=== PATIENT | female | born 1955 | race Caucasian/White ===

== ENCOUNTER → 2021-08-18 09:40 | Outpatient (BNVA) | payer MEDICARE, OTHER, SELFPAY | PROVIDERS: Visit Provider Nurse Practitioner Family | DX: R05.9 Cough, unspecified (principal); R53.83 Other fatigue; W57.XXXA Bitten or stung by nonvenomous insect and other nonvenomous arthropods, initial encounter; Z91.89 Other specified personal risk factors, not elsewhere classified | CPT/HCPCS: 87635 ==

== ENCOUNTER → 2021-11-04 10:36 | Outpatient (BNVA) | payer MEDICARE, OTHER, SELFPAY | PROVIDERS: Visit Provider Nurse Practitioner Family | DX: R19.7 Diarrhea, unspecified (principal); Z13.88 Encounter for screening for disorder due to exposure to contaminants; R82.998 Other abnormal findings in urine | CPT/HCPCS: 80053; 81000; 85025 ==

== ENCOUNTER → 2021-11-07 08:49 | Outpatient (BNVA) | payer MEDICARE, OTHER, SELFPAY | PROVIDERS: Referring Provider Family Medicine; Visit Provider Nurse Practitioner Family | DX: R19.7 Diarrhea, unspecified (principal); Z13.88 Encounter for screening for disorder due to exposure to contaminants | CPT/HCPCS: 87506 ==

== ENCOUNTER → 2021-11-09 11:00 | Outpatient (BNVA) | payer MEDICARE, OTHER, SELFPAY | PROVIDERS: Visit Provider Nurse Practitioner Family | DX: R19.7 Diarrhea, unspecified (principal); Z13.88 Encounter for screening for disorder due to exposure to contaminants | CPT/HCPCS: 87177; 87209; 87493 ==

== ENCOUNTER → 2022-08-25 10:50 | Outpatient (BNVA) | payer MEDICARE, OTHER, SELFPAY | PROVIDERS: PCP Family Medicine; Visit Provider Family Medicine | DX: E53.8 Deficiency of other specified B group vitamins (principal); T78.40XA Allergy, unspecified, initial encounter; M81.0 Age-related osteoporosis without current pathological fracture; M19.90 Unspecified osteoarthritis, unspecified site; I10 Essential (primary) hypertension; Z13.6 Encounter for screening for cardiovascular disorders; E55.9 Vitamin D deficiency, unspecified | CPT/HCPCS: 80053; 80061; 82607; 82652; 85025 ==

== ENCOUNTER → 2022-09-13 09:28 | Outpatient (BNVA) | payer MEDICARE, OTHER, SELFPAY | PROVIDERS: PCP Family Medicine; Visit Provider Family Medicine | DX: D58.2 Other hemoglobinopathies (principal); E53.8 Deficiency of other specified B group vitamins; E83.119 Hemochromatosis, unspecified | CPT/HCPCS: 82728; 83540 ==

== ENCOUNTER → 2024-04-10 09:11 | Outpatient (BNVA) | payer MEDICARE, MEDICAID, SELFPAY | PROVIDERS: PCP Family Medicine; Visit Provider Family Medicine | DX: N39.0 Urinary tract infection, site not specified (principal); M19.90 Unspecified osteoarthritis, unspecified site; I10 Essential (primary) hypertension; E53.8 Deficiency of other specified B group vitamins; E03.9 Hypothyroidism, unspecified | CPT/HCPCS: 80053; 80061; 81000; 82607; 84443; 85025 ==

== ENCOUNTER 2024-11-11 08:53 | Outpatient (CLI) | payer MEDICARE, SELFPAY ==
--- NOTE | 2024-11-11 08:59 | CTR_ITS ---
PROCEDURE INFORMATION: Exam: CT Abdomen And Pelvis With Contrast Exam date and time: 11/11/2024 10:27 AM Age: 69 years old Clinical indication: Abdominal pain; Generalized; Prior surgery; Surgery date: 6+ months; Surgery type: Hyst, gb, duodenum x 2; Mucus diarrhea x 1 month with cramping; Additional info: K57.92 - diverticulitis of intestine, part unspecified, w. . . TECHNIQUE: Imaging protocol: Computed tomography of the abdomen and pelvis with contrast. Radiation optimization: All CT scans at this facility use at least one of these dose optimization techniques: automated exposure control; mA and/or kV adjustment per patient size (includes targeted exams where dose is matched to clinical indication); or iterative reconstruction. Contrast material: OMNIPAQUE 350; Contrast volume: 100 ml; Contrast route: INTRAVENOUS (IV); Other contrast: Oral, omnipaque 350, 50; COMPARISON: No relevant prior studies available. RADIATION DOSE METRICS: Total DLP (mGy-cm): 235.9 FINDINGS: Lungs: Mild bilateral lower lobe atelectasis. A few bulla are present in the right lower lobe. Liver: 4 mm hypodensity posteriorly in the right lobe of the liver, too small to characterize. No suspicious liver mass. Gallbladder and biliary ducts: Post cholecystectomy. There is no evidence of biliary ductal dilation. Pancreas: Slight reduced attenuation of the pancreatic parenchyma, likely reflecting fatty infiltration. No evidence for pancreas mass or pancreas ductal dilatation. Spleen: The spleen is normal. Adrenal glands: The adrenal glands are normal. Kidneys and ureters: Bilateral renal cysts, measuring up to 4.8 cm on right. Bilateral renal cortical defects suggesting infarcts. 4 mm calcification in the right renal hilum is likely vascular. No urinary calculi identified. No hydronephrosis. Stomach and bowel: Third portion of the duodenal is collapsed as it extends between the aorta and SMA. No bowel dilatation. Moderate low-attenuation mural thickening involves the distal transverse colon, descending colon, sigmoid colon and proximal rectum. Very slight strand-like density surrounds the thickened portions of the colon, but there are no focal paracolonic inflammatory changes or fluid collections. Appendix: Normal appendix. Intraperitoneal space: Small amount of free fluid is noted in the left posterior pelvis. No free intraperitoneal gas. Vasculature: Marked mural calcification in the abdominal aorta and iliac arteries. No abdominal aortic aneurysm. Moderate to severe external iliac artery stenoses are present bilaterally. A focal calcification at the origin of the right renal artery obscures the lumen, and could reflect severe stenosis. Mild dilatation of the proximal celiac artery. Lymph nodes: No lymph node enlargement. Urinary bladder: Bladder is collapsed, but is otherwise unremarkable.There has been a hysterectomy. Reproductive: No adnexal cysts or masses are identified. Bones/joints: 2.6 cm dense, sclerotic focus in the right iliac wing superior to the right acetabulum. Diffuse, patchy osseous demineralization is present. Soft tissues: Unremarkable. CT/CT abdomen pelvis w con* [id number] IMPRESSION: 1. Diffuse mural thickening involving the left colon consistent with colitis. Infectious processes and inflammatory bowel disease should be considered. 2. Narrowed duodenum as it extends under the SMA. If there are clinical concerns for SMA syndrome, further assessment with upper GI series is recommended. 3. Severe atherosclerotic disease including external iliac artery stenoses and possible right renal artery stenosis. 4. Indeterminate 2.6 cm sclerotic density in the right iliac ring. Although a large bone island could account for this appearance, a single osseous metastasis is considered. The findings should be assessed for acuity with comparison to prior imaging studies. COMMENTS: Consistent with the [employer]'s Incidental Findings Committee white paper (J Am Delio Radiol 2018): Any incidental renal lesion less than 1 cm or classified as too small to characterize, or any incidental cystic renal lesion characterized as simple-appearing, is likely benign. No follow-up imaging is recommended for these lesions per consensus recommendations based on imaging criteria.
[2024-11-11] MEDS: iohexol 350 mg/mL 500 mL Btl (per mL) PO (09:41)
[2024-11-11 10:23] LABS: Blood Urea Nitrogen 13 mg/dL (8-23)
== END 2024-11-11 08:54 | disposition home or self-care (01) ==
LOC: RAD 08:54
PROVIDERS: PCP Family Medicine; Visit Provider Clinical Nurse Specialist Adult Health
DX: K57.92 Diverticulitis of intestine, part unspecified, without perforation or abscess without bleeding (principal); I70.8 Atherosclerosis of other arteries
CPT/HCPCS: 74177; 82565; 84520

== ENCOUNTER → 2025-03-05 14:44 | Outpatient (BNVA) | payer MEDICARE, SELFPAY | PROVIDERS: PCP Family Medicine; Visit Provider Family Medicine | DX: Z00.00 Encounter for general adult medical examination without abnormal findings (principal); I77.1 Stricture of artery; K52.9 Noninfective gastroenteritis and colitis, unspecified; R10.84 Generalized abdominal pain; M19.90 Unspecified osteoarthritis, unspecified site; E03.9 Hypothyroidism, unspecified | CPT/HCPCS: 80053; 80061; 82306; 82607; 84443; 85025 ==